=== PATIENT | female | born 1960 | race Caucasian/White ===

== ENCOUNTER 2024-09-03 16:01 | Outpatient (CLI) | payer MEDICARE, BC ==
[2024-09-03 17:11] LABS: #Basophils 0.05 10x3/uL (0.0-0.2); %Eosinophils 4.8 % (0.0-10.0); %Lymphocytes 35.1 % (21.0-51.0); %Monocytes 7.4 % (0.0-10.0); %Neutrophils 51.3 % (42.0-75.0); Hemoglobin 13.9 g/dL (12.0-16.0); Mean Corpuscular HGB CONC 33.9 g/dL (32.0-36.0); Mean Corpuscular Hemoglobin 30.7 pg (27.0-31.0); Mean Corpuscular Volume 90.5 fL (78.0-98.0); Mean Platelet Volume 8.9 fL (7.4-10.4); Platelet Count 270 10x3/uL (130-400); RBC Distribution Width 12.8 % (11.5-14.5); Red Blood Cell (RBC) Count 4.53 mill/uL (4.20-5.40)
[2024-09-03 17:25] LABS: Prothrombin Time 12.8 sec (12.0-14.7)
[2024-09-03 17:39] LABS: Anion Gap 12 mmol/L (10-20); BUN (Urea Nitrogen) 12 mg/dL (9.8-20.1); Calc. Creatinine Clearance 0 mL/min (70-130); Calcium 8.8 mg/dL (7.8-10.44); Carbon Dioxide 24 mmol/L (23-31); Chloride 108 mmol/L (98-107); Estimated GFR 88; Glucose 89 mg/dL (80-115); Potassium 3.9 mmol/L (3.5-5.1); Sodium 140 mmol/L (136-145)
== END 2024-09-03 16:02 | disposition home or self-care (01) ==
LOC: LABBT 16:01
PROVIDERS: ATTEND Orthopaedic Surgery
DX: Z01.818 Encounter for other preprocedural examination (principal); M75.112 Incomplete rotator cuff tear or rupture of left shoulder, not specified as traumatic
CPT/HCPCS: 71046; 80048; 85025; 85610; 93005; 93010

== ENCOUNTER 2024-09-10 06:53 | Day surgery (SDC) | payer MEDICARE, BC ==
[2024-09-03 16:28] VITALS: BMI 35.2
[2024-09-10] MEDS ORDERED: fentaNYL 50 mcg/mL 1 mL Vial ONE (08:09)
[2024-09-10] MEDS ORDERED: Ropivacaine 0.5% HCl/PF (150 MG/30 ML VIAL) ONE (08:09)
[2024-09-10] MEDS ORDERED: Midazolam HCl 2 mg/2 ml Vial ONE (08:09)
[2024-09-10] MEDS ORDERED: Ropivacaine 0.2% HCl/PF 20 ML ONE (08:10)
[2024-09-10] MEDS ORDERED: Vancomycin (BATCH) 1.5 GM/300 ML BAG ONE (08:15)
[2024-09-10] MEDS ORDERED: CEFAZOLIN 2 GM VIAL ONE (08:55)
[2024-09-10] MEDS ORDERED: PROPOFOL 20 ML ONE (09:02)
[2024-09-10] MEDS ORDERED: Rocuronium Bromide 10 MG/ML (10ML VIAL) ONE (09:03)
[2024-09-10] MEDS ORDERED: Ondansetron PF 4 MG/2 ML Vial ONE (09:03)
[2024-09-10] MEDS ORDERED: Lidocaine 1% PF 5 ML VIAL ONE (09:03)
[2024-09-10] MEDS ORDERED: Ondansetron PF 4 MG/2 ML Vial IVP PRN (09:15)
[2024-09-10] MEDS ORDERED: Ropivacaine 0.2% 550 ML 550 ML NERVE BLCK SCH (09:15)
[2024-09-10] MEDS ORDERED: Promethazine HCl 25 MG/ML VIAL IM PRN (09:15)
[2024-09-10] MEDS ORDERED: Zolpidem Tartrate 5 MG TAB PO PRN (09:15)
[2024-09-10] MEDS ORDERED: traMADol HCl 50 MG TAB PO PRN ×2 (09:15)
[2024-09-10] MEDS ORDERED: Dexamethasone 20 MG/5 ML VIAL ONE (09:36)
[2024-09-10] MEDS ORDERED: Metoclopramide HCl 10 MG (2 mL) VIAL ONE (09:36)
[2024-09-10] MEDS ORDERED: ePHEDrine Sulfate 50 MG/10 ML VIAL ONE (09:54)
[2024-09-10] MEDS ORDERED: Vasopressin 20 UNITS/ML VIAL ONE (09:55)
[2024-09-10] MEDS ORDERED: SUGAMMADEX SODIUM 200 MG/2 ML VIAL ONE (11:01)
[2024-09-10] MEDS ORDERED: Promethazine HCl 25 MG/ML VIAL ONE (11:29)
[2024-09-10] MEDS ORDERED: Scopolamine 1 mg/72 hour Patch ONE (13:07)
== END 2024-09-10 14:10 | disposition home or self-care (01) ==
LOC: SDC 06:53
PROVIDERS: ATTEND Orthopaedic Surgery
PROC: 0LM20ZZ Reattachment of Left Shoulder Tendon, Open Approach (ICD-10-PCS; principal; 2024-09-10)
PROC: 0LS40ZZ Reposition Left Upper Arm Tendon, Open Approach (ICD-10-PCS; 2024-09-10)
DX: M75.122 Complete rotator cuff tear or rupture of left shoulder, not specified as traumatic (principal); M19.012 Primary osteoarthritis, left shoulder; I10 Essential (primary) hypertension; E78.00 Pure hypercholesterolemia, unspecified; Z90.710 Acquired absence of both cervix and uterus; Z98.890 Other specified postprocedural states; Z88.6 Allergy status to analgesic agent; Z88.8 Allergy status to other drugs, medicaments and biological substances; Z88.1 Allergy status to other antibiotic agents; Z79.02 Long term (current) use of antithrombotics/antiplatelets; Z79.899 Other long term (current) drug therapy
CPT/HCPCS: 23420; 23430; A4306; A6223; C1713 ×2; C1894; J1100; J2250; J2405; J2550; J2704; J2765; J2795 ×3; J3010; J3370